=== PATIENT | female | born 1970 | race Hispanic/Latino ===

== ENCOUNTER 2024-06-12 09:34 | Inpatient (IN) | payer OTHER ==
[2024-06-07 11:55] LABS: BASOPHILS # (AUTO) 0.1 (0.0-0.1); BASOPHILS % 1.2 % (0.0-1.0); EOSINOPHILS # (AUTO) 0.3 (0.0-0.4); EOSINOPHILS % 3.8 % (0.0-6.0); HEMATOCRIT 36.5 % (34.2-44.1); HEMOGLOBIN 12.3 g/dL (12.0-16.0); LYMPHOCYTES # (AUTO) 1.7 (1.0-3.2); LYMPHOCYTES % 26.3 % (18.0-39.1); MEAN CORPUSCULAR HEMOGLOBIN 28.3 pg (28-32); MEAN CORPUSCULAR HGB CONC 33.7 g/dL (31-35); MEAN CORPUSCULAR VOLUME 84.1 fL (81-99); MONOCYTES # (AUTO) 0.4 (0.2-0.8); MONOCYTES % 5.9 % (4.4-11.3); NEUTROPHILS # (AUTO) 4.1 (2.1-6.9); NEUTROPHILS % 62.5 % (38.7-80.0); PLATELET COUNT 266 x10e3/uL (140-360); RED BLOOD COUNT 4.34 x10e6/uL (3.6-5.1); RED CELL DISTRIBUTION WIDTH 12.9 % (11.7-14.4); WHITE BLOOD COUNT 6.57 x10e3/uL (4.8-10.8)
[2024-06-07 12:35] LABS: ALBUMIN 4.2 g/dL (3.5-5.0); BILIRUBIN,TOTAL 0.3 mg/dL (0.2-1.2); CALCIUM 9.4 mg/dL (8.4-10.2); CREATININE, SERUM 0.8 mg/dL (0.57-1.11); TOTAL PROTEIN 7.1 g/dL (6.5-8.1)
[2024-06-07 12:36] LABS: ALBUMIN/GLOBULIN RATIO 1.4 (0.8-2.0)
[2024-06-12] VITALS (7 sets, daily range): BP systolic 113–125; BP diastolic 66–70; PULSE 71–85; RESP 16–21; TEMP 97.8–98.7; O2SAT 93–100
[~2024-06-12] VITALS: Ht 152.4 cm; Wt 76.8 kg
[~2024-06-12 09:34] MED LIST: BUDESONIDE0.5 MG/2 M NEB; CETIRIZINE HCL10 M1 PO; FLUOXETINE HCL20 M1 PO; GLIPIZIDE ER5 MG PO; JANUVIA50 MG PO; KLONOPIN0.5 MG PO; LEVALBUTER0.63 MG/3 NEB; METFORMIN HCL500 MG PO; MONTELUKAST SOD10 MG PO; SODIUM CHLORI1000 ML IR; TRELEGY ELLIPT1 EAC1 INH; YUVAFEM10 MCG PO
[2024-06-12] MEDS: LACTATED RINGER'S 1,000 ML ONE (10:03)
[2024-06-12] MEDS ORDERED: SEVOFLURANE INHAL SOLN 250 ML PEN BTL ONE (12:19)
[2024-06-12] MEDS ORDERED: ACETAMINOPHEN 1000 MG/100 ML IV ONE (12:19)
[2024-06-12] MEDS ORDERED: PROPOFOL IV EMULSION 10 MG/ML 20 ML VIAL ONE (12:19)
[2024-06-12] MEDS ORDERED: LIDOCAINE HCL 2% LOCAL INJ 5 ML SDV VIAL INJ ONE (12:19)
[2024-06-12] MEDS ORDERED: ROCURONIUM BROMIDE 10 MG/ML 5ML VIAL IV ONE (12:19)
[2024-06-12] MEDS ORDERED: SUGAMMADEX SODIUM 200 MG/2 ML VIAL IV ONE ×2 (12:19→12:41)
[2024-06-12] MEDS ORDERED: ONDANSETRON HCL INJ 2MG/ML 2ML 2 MG/ML VIAL ONE (12:19)
[2024-06-12] MEDS ORDERED: SUCCINYLCHOLINE CHLORIDE 20 MG/ML 10ML VIAL ONE ×2 (12:19→12:40)
[2024-06-12] MEDS ORDERED: ALBUTEROL 90 MCG/ACT INHALER INH ONE (12:19)
[2024-06-12] MEDS ORDERED: METOCLOPRAMIDE HCL 10 MG/2ML VIAL ONE (12:19)
[2024-06-12] MEDS ORDERED: BUPIVACAINE 0.5%/EPI 30 ML SDV INJ ONE (12:29)
[2024-06-12] MEDS ORDERED: EPINEPHRINE HCL 1:1000 1ML 1 MG/ML AMP ONE (12:39)
[2024-06-12] MEDS ORDERED: BUPIVACAINE 0.25% 30ML SDV ONE (12:39)
[2024-06-12] MEDS ORDERED: ACETAMINOPHEN 1000 MG/100 ML 100 ML IV ONE (12:40)
[2024-06-12] MEDS ORDERED: LIDOCAINE HCL 2% LOCAL 20 ML VIAL ONE (12:42)
[2024-06-12] MEDS ORDERED: FENTANYL CITRATE/PF 100MCG/2 ML INJ ONE (13:22)
[2024-06-12] MEDS ORDERED: LEVALBUTEROL HCL SOLN NEBU 0.63 MG/3 ML NEB INH SCH (15:00)
[2024-06-12] MEDS ORDERED: BUDESONIDE 0.5MG/2 ML NEB NEB SCH (15:00)
[2024-06-12] MEDS ORDERED: ACETAMINOPHEN 1000 MG/100 ML IV PRN (15:00)
[2024-06-12] MEDS ORDERED: ONDANSETRON HCL INJ 2MG/ML 2ML 2 MG/ML VIAL IV PRN (15:00)
[2024-06-12] MEDS: SODIUM CHLORIDE 0.9% 1000ML 1,000 ML IV SCH (16:41)
[2024-06-12] MEDS: HYDROMORPHONE 1MG/1ML INJ IV PRN (16:42)
[2024-06-12] MEDS: SODIUM CHLORIDE 0.9% 250ML IRRIG IR SCH (17:03)
[2024-06-12] MEDS: INSULIN REGULAR, HUMAN 100 UNIT/1 ML SQ SCH (17:29)
[2024-06-12] MEDS ORDERED: BUDESONIDE 0.5MG/2 ML NEB NEB PRN (18:15)
[2024-06-13] VITALS (10 sets, daily range): BP systolic 108–145; BP diastolic 58–84; PULSE 74–91; RESP 18–20; TEMP 97.5–99.5; O2SAT 95–100
[2024-06-13 05:14] LABS: BASOPHILS % 0.6 % (0.0-1.0); EOSINOPHILS # (AUTO) 0.1 (0.0-0.4); EOSINOPHILS % 1.1 % (0.0-6.0); HEMATOCRIT 32.3 % (34.2-44.1); HEMOGLOBIN 10.8 g/dL (12.0-16.0); LYMPHOCYTES # (AUTO) 1.3 (1.0-3.2); LYMPHOCYTES % 18.2 % (18.0-39.1); MEAN CORPUSCULAR HEMOGLOBIN 28.5 pg (28-32); MEAN CORPUSCULAR HGB CONC 33.4 g/dL (31-35); MEAN CORPUSCULAR VOLUME 85.2 fL (81-99); MONOCYTES # (AUTO) 0.4 (0.2-0.8); MONOCYTES % 5.9 % (4.4-11.3); NEUTROPHILS # (AUTO) 5.4 (2.1-6.9); NEUTROPHILS % 74.1 % (38.7-80.0); PLATELET COUNT 214 x10e3/uL (140-360); RED BLOOD COUNT 3.79 x10e6/uL (3.6-5.1); RED CELL DISTRIBUTION WIDTH 13.3 % (11.7-14.4); WHITE BLOOD COUNT 7.26 x10e3/uL (4.8-10.8)
[2024-06-13 05:43] LABS: ANION GAP 9.6 mmol/L (8-16); CALCIUM 8.2 mg/dL (8.4-10.2); CREATININE, SERUM 0.74 mg/dL (0.57-1.11); POTASSIUM 3.6 mmol/L (3.5-5.1)
[2024-06-13] MEDS: CLONAZEPAM 0.5 MG TAB PO PRN (20:07)
[2024-06-13] MEDS: ACETAMINOPHEN 325 MG TAB PO PRN (20:13)
[2024-06-14 05:20] VITALS: BP 125/59; PULSE 83; RESP 20; TEMP 99.1; O2SAT 98
[2024-06-14 07:00] VITALS: PULSE 70; RESP 22; O2SAT 99
[2024-06-14] MEDS: LEVALBUTEROL HCL SOLN NEBU 0.63 MG/3 ML NEB INH PRN (07:02)
[2024-06-14 08:15] VITALS: BP 126/71; PULSE 92; RESP 18; TEMP 98.3; O2SAT 96
[2024-06-14 08:52] LABS: BASOPHILS % 0.4 % (0.0-1.0); EOSINOPHILS # (AUTO) 0.4 (0.0-0.4); EOSINOPHILS % 5.3 % (0.0-6.0); HEMATOCRIT 35.7 % (34.2-44.1); HEMOGLOBIN 11.8 g/dL (12.0-16.0); LYMPHOCYTES # (AUTO) 1.4 (1.0-3.2); LYMPHOCYTES % 18.6 % (18.0-39.1); MEAN CORPUSCULAR HEMOGLOBIN 28.2 pg (28-32); MEAN CORPUSCULAR HGB CONC 33.1 g/dL (31-35); MEAN CORPUSCULAR VOLUME 85.4 fL (81-99); MONOCYTES # (AUTO) 0.5 (0.2-0.8); MONOCYTES % 6.3 % (4.4-11.3); NEUTROPHILS # (AUTO) 5.1 (2.1-6.9); NEUTROPHILS % 69.1 % (38.7-80.0); PLATELET COUNT 209 x10e3/uL (140-360); RED BLOOD COUNT 4.18 x10e6/uL (3.6-5.1); RED CELL DISTRIBUTION WIDTH 13.1 % (11.7-14.4); WHITE BLOOD COUNT 7.31 x10e3/uL (4.8-10.8)
[2024-06-14 09:07] LABS: ANION GAP 12.5 mmol/L (8-16); CREATININE, SERUM 0.73 mg/dL (0.57-1.11); POTASSIUM 3.5 mmol/L (3.5-5.1)
[2024-06-14 10:08] VITALS: BP 126/71; PULSE 92; RESP 18; TEMP 98.3; O2SAT 96
[2024-06-14 10:55] VITALS: PULSE 74; RESP 20; O2SAT 95
[2024-06-14 11:39] VITALS: BP 128/77; PULSE 73; RESP 18; TEMP 98.2; O2SAT 99
[2024-06-15] MEDS ORDERED: PANTOPRAZOLE SOD 40 MG TABEC PO SCH (07:30)
== END 2024-06-14 15:45 | disposition home or self-care (01) | DRG 328 ==
LOC: OR 09:34 → PACU V 14:52 → IMCU 15:58
PROVIDERS: ADMIT Surgery; ATTEND Surgery
PROC: 0BQT4ZZ Repair Diaphragm, Percutaneous Endoscopic Approach (ICD-10-PCS; principal; 2024-06-12 12:40)
PROC: 0DV44ZZ Restriction of Esophagogastric Junction, Percutaneous Endoscopic Approach (ICD-10-PCS; principal; 2024-06-12 12:40)
DX: K44.9 Diaphragmatic hernia without obstruction or gangrene (principal); K21.9 Gastro-esophageal reflux disease without esophagitis; J45.909 Unspecified asthma, uncomplicated; E11.9 Type 2 diabetes mellitus without complications; Z79.84 Long term (current) use of oral hypoglycemic drugs
CPT/HCPCS: 36415; 80048; 80053; 82948; 85025; 93005; 94640; 94799; 99252; C1766; J0171; J0330; J0690; J1170; J2001; J2405; J2470; J2765; J7030

== ENCOUNTER → 2025-04-08 | Day surgery (SDC) | payer MEDICAID ==
[~2025-04-08] MED LIST changes: +FENTANYL CITRATE/PF 100MCG/2 ML INJ ONE; +LACTATED RINGER'S 1,000 ML ONE; +LIDOCAINE HCL 2% LOCAL INJ 5 ML SDV VIAL INJ ONE; +METRONIDAZOLE500 MG PO; +OMEPRAZOLE40 MG PO; +ONDANSETRON HCL INJ 2MG/ML 2ML 2 MG/ML VIAL ONE; +PROPOFOL IV EMULSION 50 ML IV ONE
[2025-04-08 14:27] VITALS: BP 131/76; PULSE 66; RESP 17; O2SAT 98
== END | disposition home or self-care (01) ==
LOC: OR 09:29
PROVIDERS: ATTEND Internal Medicine Gastroenterology
DX: K21.00 Gastro-esophageal reflux disease with esophagitis, without bleeding (principal); K29.50 Unspecified chronic gastritis without bleeding; E11.9 Type 2 diabetes mellitus without complications; E78.5 Hyperlipidemia, unspecified; K76.0 Fatty (change of) liver, not elsewhere classified; J45.909 Unspecified asthma, uncomplicated; F31.9 Bipolar disorder, unspecified; Z98.890 Other specified postprocedural states; Z79.84 Long term (current) use of oral hypoglycemic drugs; Z79.51 Long term (current) use of inhaled steroids; Z79.899 Other long term (current) drug therapy; Z88.5 Allergy status to narcotic agent; Z68.31 Body mass index [BMI] 31.0-31.9, adult; Z01.810 Encounter for preprocedural cardiovascular examination; Z87.891 Personal history of nicotine dependence
CPT/HCPCS: 36415; 43239; 82948; 88305; 93005; J2003; J2405; J2704; J3010; J7121; 88312